=== PATIENT | male | born 1965 | race Caucasian/White ===

== ENCOUNTER 2017-01-17 22:41 | Inpatient (IN) | payer MEDICARE, OTHER ==
[~2017-01-17] VITALS: Ht 165.1 cm; Wt 78.7 kg
[2017-01-17 22:49] VITALS: BP 141/93; PULSE 105; RESP 18; O2SAT 95
--- NOTE | 2017-01-18 00:01 | PD ---
HPI Chief Complaint: Psychiatric Symptoms Time Seen by Provider: 23:38 Travel History International Travel<30 days: No Contact w/Intl Traveler<30days: No Traveled to known affect area: No History of Present Illness HPI 51-year-old white male presents emergency room as a transfer from [facility] for psychological evaluation under Lew act by the ER physician. The patient initially gone into the ER stating that he was not feeling well after eating a steak and shake. During his intake he had mentioned that he has a history of bipolar disorder and that he has multiple firearms. He stated that he wanted to shoot his sister. A Lew act was written and the patient was medically cleared and transferred to our facility. The patient states that he enjoys shooting. It helps with his mental illness. The patient will not answer whether he has plans on shooting his sister or any other family members. He does state that he is on about suicide on multiple occasions but has no plan on hurting himself. Patient denies any toxic ingestions. PFSH Past Medical History Narrative Medical Bipolar, hypertension, history of hypercholesterolemia in the past. Tetanus Vaccination: Unknown Past Surgical History Surgical History: No Previous Surgery Social History Alcohol Use: No Tobacco Use: No Substance Use: No Review of Systems General / Constitutional: No: Fever Eyes: No: Visual changes HENT: No: Headaches Cardiovascular: No: Chest Pain or Discomfort Respiratory: No: Shortness of Breath Gastrointestinal: Positive: Nausea, Other (general malaise), No: Abdominal Pain Genitourinary: No: Dysuria Musculoskeletal: No: Pain Skin: No Rash Neurologic: No: Weakness Psychiatric: Positive: Suicidal Ideations, Mood Disorder, Homicidal Ideation, No: Anxiety, Depression, Disorder of Thought, Substance Abuse Endocrine: No: Polydipsia Hematologic/Lymphatic: No: Easy Bruising Physical Exam Narrative GENERAL: Well-nourished, well-developed patient. SKIN: Warm and dry. HEAD: Normocephalic and atraumatic. EYES: No scleral icterus. No injection or drainage. ENT: No nasal drainage noted. Mucous membranes pink. Airway patent. NECK: Supple, trachea midline. Moves head freely without obvious discomfort. CARDIOVASCULAR: Regular rate and rhythm without murmurs, gallops, or rubs. RESPIRATORY: Breath sounds equal bilaterally. No accessory muscle use. GASTROINTESTINAL: Abdomen soft, non-tender, nondistended. EXTREMITIES: No cyanosis or edema. BACK: Nontender without obvious deformity. No CVA tenderness. NEURO: Patient is alert and oriented. no sensorimotor deficits. Nonfocal. Normal speech. PSYCH: No delusions. No auditory or visual hallucinations. Data Data Last Documented VS Vital Signs Date Time Temp Pulse Resp B/P (MAP) Pulse Ox O2 Delivery O2 Flow Rate FiO2 01/17/17 22:49 105 18 141/93 (109) 95 Room Air MDM Medical Decision Making Medical Screen Exam Complete: Yes Emergency Medical Condition: Yes Medical Record Reviewed: Yes Interpretation(s) Patient laboratory tests reviewed. Differential Diagnosis MDM: High Differential diagnoses: Schizophrenia, schizoaffective disorder, bipolar, anxiety, depression, adjustment reaction, mood disorder NOS, ODD, depressive disorder NOS, dementia, dementia with agitation, psychosis NOS, substance induced mood disorder, DMDD, Asperger syndrome, infection,electrolyte abnormality, malingering. Narrative Course Mental health screening discussed with the patient. Psychiatric screen ordered. The patient's been medically cleared. This is medical clearance for psychiatric admission Diagnosis Primary Impression: Medical clearance for psychiatric admission Condition: Gil Harrison Jan 18, 2017 00:01
[2017-01-18] MEDS ORDERED: LEVO.075 PO (02:26)
[2017-01-18 02:41] VITALS: BP 116/68; PULSE 62; RESP 16; TEMP 98.3; O2SAT 97
[2017-01-18 06:00] VITALS: BP 123/78; PULSE 68; RESP 17; TEMP 98.6; O2SAT 100
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
[2017-01-18] MEDS ORDERED: LORazepam 1 MG TAB PO PRN (12:45)
[2017-01-18] MEDS ORDERED: ALUMINUM/MAGNESIUM/SIMETH 30 ML CUP PO PRN (12:45)
[2017-01-18] MEDS ORDERED: LORazepam 2 MG/ML VIAL IM PRN (12:45)
[2017-01-18] MEDS ORDERED: diphenhydrAMINE HCL 50 MG/ML VIAL IM PRN (12:45)
[2017-01-18] MEDS: LEVOTHYROXINE SODIUM 75 MCG TAB PO SCH (13:00)
[2017-01-18 15:25] VITALS: BP 122/69; PULSE 77; RESP 18; TEMP 97.9; O2SAT 99
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
--- NOTE | 2017-01-18 21:52 | RADRPT ---
EXAM DATE/TIME: 01/18/2017 21:31 [facility] COMPARISON: No previous studies available for comparison. INDICATIONS : Psychosis. RADIATION DOSE: 49.98 CTDIvol (mGy) MEDICAL HISTORY : Thyroid disease. Bipolar. SURGICAL HISTORY : None. ENCOUNTER: Initial ACUITY: 1 day PAIN SCALE: 0/10 LOCATION: cranial TECHNIQUE: Multiple contiguous axial images were obtained of the head. Using automated exposure control and adj ustment of the mA and/or kV according to patient size, radiation dose was kept as low as reasonably a chievable to obtain optimal diagnostic quality images. DICOM format image data is available electro nically for review and comparison. FINDINGS: CEREBRUM: The ventricles are normal for age. No evidence of midline shift, mass lesion, hemorrhage or acute in farction. No extra-axial fluid collections are seen. POSTERIOR FOSSA: The cerebellum and brainstem are intact. The 4th ventricle is midline. The cerebellopontine angle i s unremarkable. EXTRACRANIAL: The visualized portion of the orbits is intact. SKULL: The calvaria is intact. No evidence of skull fracture. CONCLUSION: Normal examination for a patient of this age. Gil Teran MD on January 18, 2017 at 21:49 Board Certified Radiologist. This report was verified electronically.
[2017-01-19 05:58] VITALS: BP 140/86; PULSE 74; RESP 17; TEMP 97.4; O2SAT 97
[2017-01-19] MEDS: LEVOTHYROXINE SODIUM 75 MCG TAB PO SCH (06:00)
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
--- NOTE | 2017-01-19 15:26 | HHI.PR ---
Subjective Remarks Patient is upset and crying because his father has another Denies cp/sob Objective Vitals Vital Signs Date Time Temp Pulse Resp B/P (MAP) Pulse Ox O2 Delivery O2 Flow Rate FiO2 01/19/17 05:58 97.4 74 17 140/86 (104) 97 Objective Remarks AAOx3, very upset and crying Clear lungs bl Abdomen soft, nt, nd A/P Problem List: (1) Bipolar disorder, current episode mixed, severe, with psychotic features ICD Code: F31.64 - Bipolar disorder, current episode mixed, severe, with psychotic features Plan: Management as per psychiatry. C Psych ordered B12, vitamin D, TSH, CBC and CMP as well as EKG. I will order a heat CT and RPR screen to complete evaluation for psychosis and to rule out organic causes. 01/[address] negative, RPR pending. Other labs pending as well. EKG reviewed by me shows sinus rythm without st changes. (2) Hypothyroidism ICD Code: E03.9 - Hypothyroidism, unspecified Plan: Continue levothyroxine at home dose. Check TSH. (3) HTN (hypertension) ICD Code: I10 - Essential (primary) hypertension Plan: Blood pressure seems stable. The patient states he was currently on amlodipine 10 minutes by mouth daily. I will hold amlodipine for now and if blood pressures start to rise then I will start amlodipine. 01/19 BP continues to be stable. Continue to monitor bp and continue to hold antihypertensive medications. (4) BPH (benign prostatic hyperplasia) ICD Code: N40.0 - Benign prostatic hyperplasia without lower urinary tract symptoms Plan: Continue Flomax, seems stable. Problem Qualifiers (1) BPH (benign prostatic hyperplasia): Qualified Codes: N40.0 - Benign prostatic hyperplasia without lower urinary tract symptoms Pravin Monroe MD Jan 19, 2017 15:25
[2017-01-19 17:24] VITALS: BP 144/91; PULSE 67; RESP 18; TEMP 97.8; O2SAT 99
[2017-01-19] MEDS: ACETAMINOPHEN 325 MG TAB PO PRN (21:09)
[2017-01-19] MEDS: MAGNESIUM HYDROXIDE SUSP 30 ML CUP PO PRN (21:14)
[2017-01-19] MEDS ORDERED: MIRTAZAPINE 15 MG TAB PO PRN (22:30)
[2017-01-19] MEDS ORDERED: PILL SPLITTER OTHER PRN (22:45)
[2017-01-20] MEDS: ACETAMINOPHEN 325 MG TAB PO PRN ×2 (01:13→05:43)
[2017-01-20 05:59] VITALS: BP 125/89; PULSE 65; RESP 16; TEMP 98.7; O2SAT 98
[2017-01-20] MEDS: LEVOTHYROXINE SODIUM 75 MCG TAB PO SCH (06:51)
[2017-01-20] MEDS ORDERED: DIVALPROEX SODIUM DELAYED RELEASE 250 MG TAB PO SCH (09:00)
--- NOTE | 2017-01-20 12:18 | HHI.PYPN ---
Subjective Remarks Pt seen and discussed with staff. Pt remains labile with irritability. He refused medications today due to paranoia about depakote, but agreed to take ER formulation. He is focused on discharge and expresses paranoid ideations. Mental Status Examination Appearance: Disheveled Consciousness: Alert Orientation: Person, Place, Date/Time Motor Activity: Normal gait Speech: Rapid Language: Adequate Fund of Knowledge: Adequate Attention and Concentration: Inadequate Memory: Unremarkable Mood: Angry Affect: Irritable Thought Process & Associations: Loose associations Thought Content: Bizarre thinking, Ideas of reference Hallucination Type: None Delusion Type: Bizarre, Paranoid Suicidal Ideation: No Suicidal Plan: No Suicidal Intention: No Homicidal Ideation: Yes Homicidal Plan: Yes Homicidal Intention: No Insight: Adequate Judgment: Adequate Results Vitals/IOs Vital Signs Date Time Temp Pulse Resp B/P (MAP) Pulse Ox O2 Delivery O2 Flow Rate FiO2 01/20/17 05:59 98.7 65 16 125/89 (101) 98 01/18/17 06:00 Room Air Assessment & Plan Problem List: (1) Bipolar disorder, current episode mixed, severe, with psychotic features ICD Codes: F31.64 - Bipolar disorder, current episode mixed, severe, with psychotic features Assessment & Plan Changed depakote to ER formulation. Restarted home dose of amlodipine after confirmation of dose from outpatient pharmacy. Estimated LOS: days Justification for Cont. Inpt. impairments in safety Ashley Millan MD Jan 20, 2017 12:18
[2017-01-20 12:51] LABS: AUTOMATED NEUTROPHIL # 2.3 TH/MM3 (1.8-7.7); BASOPHIL % 0.6 % (0.0-2.0); EOSINOPHIL # 0.1 TH/MM3 (0-0.4); EOSINOPHIL % 2.2 % (0.0-4.0); HEMATOCRIT 41.3 % (39.0-51.0); HEMO FLAGS DIFF FINAL; LYMPH % 43.4 % (9.0-44.0); LYMPHOCYTE # 2.5 TH/MM3 (1.0-4.8); MEAN CELL VOLUME 87.5 FL (80.0-100.0); MEAN CORPUSCULAR HGB CONC 33.1 % (32.0-36.0); MONO % 14.2 % (0.0-8.0); NEUT % 39.6 % (16.0-70.0); PLATELET COUNT 317 TH/MM3 (150-450); RED BLOOD COUNT 4.72 MIL/MM3 (4.50-5.90); RED CELL DISTRIBUTION WIDTH 15.6 % (11.6-17.2); WHITE BLOOD COUNT 5.7 TH/MM3 (4.0-11.0)
[2017-01-20 13:22] LABS: ANION GAP 5 MEQ/L (5-15); AST (GOT) 26 U/L (15-37); BICARBONATE 31.8 MEQ/L (21.0-32.0); BLOOD UREA NITROGEN 21 MG/DL (7-18); CHLORIDE 100 MEQ/L (98-107); GLOMERULAR FILTRATION RATE 65 ML/MIN (>89); POTASSIUM 4.5 MEQ/L (3.5-5.1); SODIUM (NA) 137 MEQ/L (136-145)
[2017-01-20 13:24] LABS: ALT (GPT) 23 U/L (12-78)
[2017-01-20 13:49] LABS: ALKALINE PHOSPHATASE 69 U/L (45-117); HDL CHOLESTEROL 47.2 MG/DL (40.0-60.0); LDL CHOLESTEROL 100 MG/DL (0-99); TOTAL BILIRUBIN ADULT 0.2 MG/DL (0.2-1.0)
[2017-01-20] MEDS: IBUPROFEN 600 MG TAB PO PRN (17:00)
[2017-01-20 17:02] VITALS: BP 132/74; PULSE 58; RESP 16; TEMP 98.4; O2SAT 99
--- NOTE | 2017-01-20 18:42 | HHI.PR ---
Subjective Remarks Patient is calm. Denies cp/sob. Denies abdominal pain, nausea or vomiting. Objective Vitals Vital Signs Date Time Temp Pulse Resp B/P (MAP) Pulse Ox O2 Delivery O2 Flow Rate FiO2 01/20/17 18:10 14 01/20/17 17:02 98.4 58 16 132/74 (93) 99 01/20/17 05:59 98.7 65 16 125/89 (101) 98 Result Diagram: 01/20/17 1237 01/20/17 1237 Imaging Last Impressions Head CT 01/18/17 0000 Signed Impressions: Service Date/Time: Wednesday, January 18, 2017 21:31 - CONCLUSION: Normal examination for a patient of this age. Gil Teran MD Objective Remarks AAOx3, calm sitting in chair Clear lungs bl Abdomen soft, nt, nd A/P Problem List: (1) Bipolar disorder, current episode mixed, severe, with psychotic features ICD Code: F31.64 - Bipolar disorder, current episode mixed, severe, with psychotic features Plan: Management as per psychiatry. C Psych ordered B12, vitamin D, TSH, CBC and CMP as well as EKG. I will order a heat CT and RPR screen to complete evaluation for psychosis and to rule out organic causes. 01/[address] negative, RPR negative, b12 and tsh normal. EKG reviewed by me shows sinus rythm without st changes. Currently on Remeron and Ativan. (2) Hypothyroidism ICD Code: E03.9 - Hypothyroidism, unspecified Plan: Continue levothyroxine at home dose. Tsh checked and normal. (3) HTN (hypertension) ICD Code: I10 - Essential (primary) hypertension Plan: Blood pressure seems stable. The patient states he was currently on amlodipine 10 mg by mouth daily. I will hold amlodipine for now and if blood pressures start to rise then I will start amlodipine. 01/19 BP continues to be stable. Continue to monitor bp, will resume amlodipine in am. (4) BPH (benign prostatic hyperplasia) ICD Code: N40.0 - Benign prostatic hyperplasia without lower urinary tract symptoms Plan: Continue Flomax, seems stable. Problem Qualifiers (1) BPH (benign prostatic hyperplasia): Qualified Codes: N40.0 - Benign prostatic hyperplasia without lower urinary tract symptoms Pravin Monroe MD Jan 20, 2017 18:42
[2017-01-20] MEDS ORDERED: DIVALPROEX SODIUM E.R. 500 MG TAB PO SCH (21:00)
--- NOTE | 2017-01-20 22:57 | EKG ---
Date Performed: 01/19/2017 Time Performed: 09:33:04 PTAGE: 51 years EKG: Sinus rhythm VOLTAGE CRITERIA FOR LVH ABNORMAL ECG NO PREVIOUS TRACING DOCTOR: Bj Vigil Interpretating Date/Time 01/20/2017 22:55:10
[2017-01-21] MEDS: LEVOTHYROXINE SODIUM 75 MCG TAB PO SCH (06:32)
[2017-01-21 06:33] VITALS: BP 122/78; PULSE 60; RESP 17; TEMP 97.6; O2SAT 98
[2017-01-21] MEDS: IBUPROFEN 600 MG TAB PO PRN (08:38)
[2017-01-21 09:32] LABS: HEMOGLOBIN A1a 1.2 %; HEMOGLOBIN A1b 0.8 %; HEMOGLOBIN Ao 84.2 %; HEMOGLOBIN LA1C 2.3 %; HEMOGLOBIN P3 4.2 %
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
[2017-01-21] MEDS: DIVALPROEX SODIUM E.R. 500 MG TAB PO SCH ×2 (15:00→20:51)
[2017-01-21] MEDS: MIRTAZAPINE 15 MG TAB PO SCH ×2 (15:00→20:51)
[2017-01-21 17:35] VITALS: BP 123/76; PULSE 66; RESP 17; TEMP 98.5; O2SAT 99
[2017-01-22 05:35] VITALS: BP 141/94; PULSE 62; RESP 17; TEMP 97.9; O2SAT 98
[2017-01-22] MEDS: LEVOTHYROXINE SODIUM 75 MCG TAB PO SCH (05:44)
[2017-01-22] MEDS: DIVALPROEX SODIUM E.R. 500 MG TAB PO SCH ×3 (08:46→21:00)
--- NOTE | 2017-01-22 11:25 | HHI.PYPN ---
Subjective Remarks Patient seen and examined with counselor and nurse. Chart reviewed. Case discussed in treatment team. Per nursing staff, patient has been no behavioral problem on the unit. He did tell staff he was thinking about going to a [employer] in [place]. On my examination today, patient is calm and cooperative. He denies any suicidal or homicidal ideation and in particular denies any desire to hurt his sister. He feels like the Depakote is "normalizing" his mood. He says that he does not want to go to a [employer] school, rather he was just talking about a shooting range in [place] that he likes with targets at a distance to allow for use of sniper rifles. Denies side effects from medications. No physical complaints. Review of Systems Except as stated in HPI: all other systems reviewed are Neg Mental Status Examination Appearance: Appropriate Consciousness: Alert Orientation: x4 Motor Activity: Normal gait, Other (no abnormal motor movements noted) Speech: Unremarkable Language: Adequate Fund of Knowledge: Adequate Attention and Concentration: Adequate Memory: Unremarkable Mood: Appropriate Affect: Appropriate Thought Process & Associations: Logical, Linear Thought Content: Appropriate Hallucination Type: None Delusion Type: None Suicidal Ideation: No Suicidal Plan: No Suicidal Intention: No Homicidal Ideation: No Homicidal Plan: No Homicidal Intention: No Insight: Fair Judgment: Impulsive Results Labs Labs reviewed. No new labs. Vitals/IOs Vital Signs Date Time Temp Pulse Resp B/P (MAP) Pulse Ox O2 Delivery O2 Flow Rate FiO2 01/22/17 05:35 97.9 62 17 141/94 (110) 98 Assessment & Plan Problem List: (1) Bipolar disorder, current episode mixed, severe, with psychotic features ICD Codes: F31.64 - Bipolar disorder, current episode mixed, severe, with psychotic features Assessment & Plan Patient's condition seems to be improving with medication adjustments. Continue Depakote and Remeron as ordered. Plan to check a Depakote and ammonia level as well as an updated BMP for GFR on morning. Transition patient to lower acuity inpatient unit as he has been no behavioral problem on the higher acuity unit. Continue other medications and care as ordered. Justification for Cont. Inpt. Monitoring for impairments in safety, none noted. Discharge Planning Case discussed with counselor who will reach out to patient's father today for collateral. Counselor also to instruct father to secure patient's firearms. Request HC Surrog/Guard Advoc?: No Kayden Segundo MD Jan 22, 2017 11:25
[2017-01-22] MEDS: IBUPROFEN 600 MG TAB PO PRN ×2 (12:33→21:13)
[2017-01-22] MEDS: ACETAMINOPHEN 325 MG TAB PO PRN (17:36)
[2017-01-22 17:43] VITALS: BP 120/70; PULSE 55; RESP 18; TEMP 98.4; O2SAT 100
[2017-01-22] MEDS: MIRTAZAPINE 15 MG TAB PO SCH (21:00)
[2017-01-23 05:50] VITALS: BP 139/82; PULSE 69; RESP 17; TEMP 97.3; O2SAT 98
[2017-01-23] MEDS: LEVOTHYROXINE SODIUM 75 MCG TAB PO SCH (06:00)
[2017-01-23] MEDS: DIVALPROEX SODIUM E.R. 500 MG TAB PO SCH ×3 (08:27→21:00)
[2017-01-23] MEDS: ACETAMINOPHEN 325 MG TAB PO PRN (08:27)
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
[2017-01-23] MEDS: SUCRALFATE 1 GM TAB PO SCH ×3 (12:00→21:00)
[2017-01-23] MEDS: GABAPENTIN 300 MG CAP PO SCH ×2 (13:53→18:09)
[2017-01-23] MEDS: IBUPROFEN 800 MG TAB PO PRN (15:42)
[2017-01-23] MEDS: PADIMATE (CHAPSTICK) 4.5 GM TUBE TOPICAL PRN ×2 (15:43→18:09)
[2017-01-23 18:00] VITALS: BP 153/87; PULSE 69; RESP 18; TEMP 98.2; O2SAT 98
[2017-01-23] MEDS: MIRTAZAPINE 15 MG TAB PO SCH (21:00)
[2017-01-24] MEDS: IBUPROFEN 800 MG TAB PO PRN ×3 (05:00→20:36)
[2017-01-24] MEDS: LEVOTHYROXINE SODIUM 75 MCG TAB PO SCH (05:45)
[2017-01-24 05:53] VITALS: BP 164/79; PULSE 59; RESP 18; TEMP 97.7; O2SAT 100
[2017-01-24] MEDS: SUCRALFATE 1 GM TAB PO SCH ×4 (07:04→20:27)
[2017-01-24] MEDS: DIVALPROEX SODIUM E.R. 500 MG TAB PO SCH ×3 (09:13→20:30)
[2017-01-24] MEDS: GABAPENTIN 300 MG CAP PO SCH ×3 (09:13→17:05)
[2017-01-24 14:24] LABS: BICARBONATE 32.3 MEQ/L (21.0-32.0); POTASSIUM 4.8 MEQ/L (3.5-5.1)
--- NOTE | 2017-01-24 15:48 | PD.HHIRCNE ---
Disclaimer Patient was given an explanation of the nature and purpose of the evaluation. Patient agreed to proceed with the evaluation and treatment plan. History Reason for Referral The patient is a 51 year old right handed male with a long history of bipolar disorder, who presents under a Lew act initiated at an outside hospital several evenings ago. Apparently the patient went to [facility] and was Lew acted by one of our former emergency room physician's, Dr. Alexander. According to the Lew act, the patient is both psychotic and homicidal. The patient indicated he was "going to shoot his sister" with a shotgun that he has under his bed. According to further reports, the patient owns multiple weapons. He had gone to steak and shake due to abdominal pain earlier that evening but when he went to the hospital, he indicated that he enjoys shooting. He stated that shooting helped his mental illness. He would not describe whether he had plans on shooting his sister or other family members. He did describe suicidality on multiple previous occasions but was not threatening suicide last night. Upon initial psychiatric interview, the patient was easily irritated and easily agitated. He obviously has strong negative feelings towards his sister. He feels that she is interfering in his life although he does not live with her and wants nothing to do with her. He appears to have paranoid delusions regarding his sister. He is unable to explain the specifics of why he feels so antagonized and persecuted by her. He continues to have homicidal ideation about shooting her. Apparently he does live with his father but states he has been noncompliant with medications. He is unable to verbally contract for safety. At this point in his hospitalization , he is referred for baseline neuropsychological evaluation to assess hig cognitive, behavioral and emotional aspects of his functioning and to provide treatment recommendations. Additional Psychosocial Hx Hx Substance Use: No Level of Education: High School Employment Status: Disabled Prior Living Setting: Home Dominant Hand: Right Past Surgical/Medical History Past Surgery: No Major surgery in last 100 days: Unknown Hx Seizures: No Hx Chest Pain: No Hx Chronic Obstructive Pulmona: No Hx Thyroid Disease: Yes Hx Diabetes: No Hx Psychiatric Problems: Yes Hx Depression: No Blood Transfusion History Will receive Blood /Blood prod: Yes Mental Status Assessment Orientation: oriented to Self, oriented to Place, oriented to Time, oriented to Situation Mental Status: Impaired: Thought processing, Problem-Solving Adjustment/Coping Assessment Adjustment/Coping: None: Depression, Anxiety, Pain, Apathy, Severe: Awareness, Insight Affect: Flat/Constricted Observation In terms of emotional functioning, the patient demonstrated challenges. This patient demonstrated no signs of agitation, impulsivity or disinhibition during this evaluation, and in fact he was quite pleasant. However, there was a remarkable evidence of a formal thought disorder and delusional psychosis. There was no evidence of depression or anxiety. The Geriatric Depression Scale- Short Form was administered given the ease to which it is administered to persons with known neurological pathology, and the patient endorsed only 2 of 15 symptoms, which falls within the non depressed depressed range. Thought content was free from suicidal or homicidal ideation, although he did voice difficulties with his sister. His thought processes were loose, tangential and concrete. The patients mood was guarded, and his affect was constricted. The patient appears to possess no insight or awareness into their situation and within the limits of this brief evaluation, poor judgment. LTG Status: Deferred STG Status: Deferred Team Members: Neuropsychologist Effort Assessment Effort: Average Cognition Assessment Rating: Variable: Language, Immediate & Delayed Memor, Visual Perception, Spatial Judgement, Impaired: Attention/Processing, Executive, Awareness-Insight Adjustm Observation The patient was alert and oriented to person, place, time and circumstances surrounding the recent hospitalization. The Mini-Mental State Exam was administered, and the patient obtained a score of 27 out of 30 points, which falls in the normal range. However, on further evaluation, specific deficits were identified. In terms of attention skills, the patient exhibited challenges due primarily to his disturbed thought processes. The patient was able to remain on task and remember basic but not complex verbal instructions. In terms of memory functioning, the patient exhibited relatively normal abilities. The patients initial registration of verbal information was normal, and the patient was able to improve their memory with repetition. After a period of delay, the patient was able to recall this information from memory. More specifically, on the Luria Memory Words Test-Short Form, the patients trial one performance was 5 of 7 words, trial five performance was 7 of 7 words , the patients Total Learning score was 31 (above cut-off), and the patients Delayed recall score was 6 of 7 words (above cut-off). In terms of speech and language skills, the patient demonstrated normal abilities. The patients initiated spontaneous conversation throughout the assessment. Speech was characterized by adequate prosody, grammar, articulation , volume and rate. No remarkable dysnomic or paraphasic errors were noted either during conversational speech or on confrontation naming tasks. Reading recognition skills were adequate, as were writing skills. On the WRAT-4 Reading test, he earned a standard score of 100 (percentile rank of 50), and this score also serves as a good estimate of his baseline level of intellectual functioning. The patients comprehension for basic one- and two-stage commands were attenuated by his thought processing deficits. In terms of problem- solving skills, the patient exhibited challenges. The patients ability to understand abstraction reasoning was clearly abnormal as reflected in his inability to abstract essential shared characteristics of objects and concept. In contrast his mathematical reasoning skills were normal. Speed of information processing, as evaluated by both the Letter and Category Fluency Tests fluctuated across tasks, but in general exhibited a notable deficit. Finally, there was no evidence of ideomotor apraxia or constructional difficulties during this brief evaluation. Summary/Diagnosis Summary This 51 year old man with recent hospital admission for bipolar disorder and homicidal ideation and medication noncompliance exhibits neuropsychological deficits consistent with executive dysfunction and diminished processing speed, the level and pattern of which are inconsistent with the normal aging process. His thought processes are clearly dysfunctional, characterized as loose, tangential and concrete, and he exhibits impairment of insight, awareness and judgment. Diagnostically, he meets criteria for mild neurocognitive disorder exacerbated by his bipolar disorder. Diagnosis: (1) Bipolar disorder, current episode mixed, severe, with psychotic features (2) Mild neurocognitive disorder Recommendations Recommendations Recommendations Neuropsychological evaluation results document a mild neurocognitive disorder affecting his ability to think logically and act appropriately, which is then further exacerbated by his chronic bipolar disorder which he has chosen to be medication noncompliant. At this point in time, he demonstrates the impaired ability to appreciate a situation and its likely consequences, and he demonstrates the impaired ability to manipulate information rationally, and consequently, it is my clinical opinion that this patient demonstrates a lack of cognitive decision making capacity. Concerning this patient's gun ownership , Federal law prohibits firearm possession by individuals who have been committed to a mental institution or adjudicated as a mental defective for which this patient is categorized. It is understood that this patient father has rounded up all of the patient's firearms and intends to sell them, which is appropriate as he should no longer have access to firearms. Additionally, [place] is a state that requires or authorizes the reporting of some mentally ill people to the federal NICS database or a state database for use in firearm cupola man background checks. This would prevent this patient from purchasing a firearm from an FFL dealer, but not a private sale. Additional recommendations include for this patient to continue to treat with a psychiatrist for his bipolar disorder and to be compliant with his medication regimen. Feedback regarding performance on this neuropsychological evaluation was provided. Avery was able to ask questions and he was provided answers and information to his satisfaction. Furthermore, I would be happy to consult with this patient in the future in order to facilitate an optimal clinical outcome, and asked the family to contact me if they have additional questions. Additionally, please do not hesitate to refer the patient's family back to me if you believe I can be of additional assistance/guidance. There is no plan for follow-up with Avery. Session Attendance Variance 60 minutes Tony Saldivar PhD Jan 24, 2017 15:48
--- NOTE | 2017-01-24 16:28 | HHI.PYPN ---
Subjective Remarks Patient seen and case discussed with nursing staff. Chart reviewed. Per nursing staff, patient has several bags worth of keys for safes containing firearms. He gave most of these to father when asked, but refused to give father one set. He reportedly slept poorly overnight and was noted to pace the unit. For me today, patient recoils at the notion that he should not have guns. He visibly quakes in anger and points an accusing finger at me saying that I must have spoken with his sister, and that is why I say he should not have guns. I have not, in fact, spoken with sister. No side effects from medications. No physical complaints. Review of Systems ROS Limitations: Psychotic, Poor Historian Except as stated in HPI: all other systems reviewed are Neg Mental Status Examination Appearance: Appropriate Consciousness: Alert Orientation: x4 Motor Activity: Other (no abnormal motor movements noted) Speech: Unremarkable Language: Adequate Fund of Knowledge: Adequate Attention and Concentration: Adequate Memory: Unremarkable Mood: Angry Affect: Other (consistent with mood) Thought Process & Associations: Linear Thought Content: Delusional Hallucination Type: None Delusion Type: Paranoid (I suspect patient continues to harbor paranoid delusions against sister) Suicidal Ideation: No Suicidal Plan: No Suicidal Intention: No Homicidal Ideation: No Homicidal Plan: No Homicidal Intention: No Insight: Fair Judgment: Impulsive Results Labs Test 01/24/17 13:16 01/24/17 14:10 Ammonia 39 MCMOL/L Blood Urea Nitrogen 24 MG/DL Creatinine 1.05 MG/DL Random Glucose 94 MG/DL Calcium Level 9.7 MG/DL Sodium Level 141 MEQ/L Potassium Level 4.8 MEQ/L Chloride Level 104 MEQ/L Carbon Dioxide Level 32.3 MEQ/L Anion Gap 5 MEQ/L Estimat Glomerular Filtration Rate 74 ML/MIN Valproic Acid (Depakene) Level 71 MCG/ML Labs reviewed. GFR improved. Depakote level within the therapeutic range. Ammonia level mildly elevated. Vitals/IOs Vital Signs Date Time Temp Pulse Resp B/P (MAP) Pulse Ox O2 Delivery O2 Flow Rate FiO2 01/24/17 05:53 97.7 59 18 164/79 (107) 100 Assessment & Plan Problem List: (1) Bipolar disorder, current episode mixed, severe, with psychotic features ICD Codes: F31.64 - Bipolar disorder, current episode mixed, severe, with psychotic features (2) Mild neurocognitive disorder ICD Codes: G31.84 - Mild cognitive impairment, so stated Assessment & Plan Add Zyprexa Zydis 5 mg at bedtime for mood stabilization and psychosis with plans to titrate to effect. Continue Depakote and Remeron as ordered. I will add Carnitor for hyperammonemia with plans to recheck an ammonia level next week. Neuropsychology input very much appreciated, and I have discussed the case with Dr. Saldivar. Continue to monitor on the high acuity unit. Continue other medications and care as ordered. Justification for Cont. Inpt. Concern for impairment in safety. Med changes. High risk for decompensation in less restrictive environment. Discharge Planning Pending psychiatric stabilization. Possible placement. Request HC Surrog/Guard Advoc?: Yes Kayden Segundo MD Jan 24, 2017 16:28
[2017-01-24] MEDS: levOCARNitine 10% ORAL SOLN 118 ML BTL PO SCH (17:05)
[2017-01-24 18:08] VITALS: BP 136/80; PULSE 60; RESP 18; TEMP 97.9; O2SAT 99
[2017-01-24] MEDS: MIRTAZAPINE 15 MG TAB PO SCH (20:28)
[2017-01-24] MEDS: MAGNESIUM HYDROXIDE SUSP 30 ML CUP PO PRN (20:35)
[2017-01-24] MEDS ORDERED: OLANZapine ODT 5 MG TAB PO SCH (21:00)
[2017-01-25] MEDS: LEVOTHYROXINE SODIUM 75 MCG TAB PO SCH (06:02)
[2017-01-25 06:15] VITALS: BP 152/87; PULSE 59; RESP 16; TEMP 97.8; O2SAT 97
[2017-01-25] MEDS: IBUPROFEN 800 MG TAB PO PRN ×2 (07:55→18:29)
[2017-01-25] MEDS: SUCRALFATE 1 GM TAB PO SCH ×4 (07:55→21:00)
[2017-01-25] MEDS: DIVALPROEX SODIUM E.R. 500 MG TAB PO SCH ×3 (07:56→21:00)
[2017-01-25] MEDS: GABAPENTIN 300 MG CAP PO SCH ×3 (07:56→18:00)
[2017-01-25] MEDS: levOCARNitine 10% ORAL SOLN 118 ML BTL PO SCH ×3 (07:59→18:00)
--- NOTE | 2017-01-25 10:58 | HHI.PYPN ---
Subjective Remarks Patient seen and examined with nurse. Chart reviewed. Case discussed in treatment team. Nurse reports that the patient "went ballistic" about addition of an antipsychotic. On my exam, patient is in behavioral control but tense/ irritable. He complains of poor sleep secondary to chronic neck pain. Paranoia persists, although it seems less focused on any one person today. He does note that "this state has been a problem for me. I want to go to a totally different state." His reasons for not wanting to take Zyprexa are variable. At one point, he says that his refusal of this medication was because he had overdosed on it once before; at another point he says he did not like this medication because it made him too sedated to ride his motorcycle. I have suggested a less sedating antipsychotic, such as Abilify. Denies side effects from medications which he did accept. No other physical complaints besides the chronic neck pain, and the patient reports that he usually uses Icy Hot for this to good effect. Review of Systems ROS Limitations: Psychotic Except as stated in HPI: all other systems reviewed are Neg Mental Status Examination Appearance: Appropriate Consciousness: Alert Orientation: x4 Motor Activity: Other (no abnormal motor movements noted) Speech: Unremarkable Language: Adequate Fund of Knowledge: Adequate Attention and Concentration: Adequate Memory: Unremarkable Mood: Irritable Affect: Other (consistent with mood) Thought Process & Associations: Linear Thought Content: Delusional Hallucination Type: None Delusion Type: Paranoid (less focused today) Suicidal Ideation: No Suicidal Plan: No Suicidal Intention: No Homicidal Ideation: No Homicidal Plan: No Homicidal Intention: No Insight: Fair Judgment: Impulsive Results Labs Labs reviewed. No new labs. Vitals/IOs Vital Signs Date Time Temp Pulse Resp B/P (MAP) Pulse Ox O2 Delivery O2 Flow Rate FiO2 01/25/17 06:15 97.8 59 16 152/87 (336) 97 Assessment & Plan Problem List: (1) Bipolar disorder, current episode mixed, severe, with psychotic features ICD Codes: F31.64 - Bipolar disorder, current episode mixed, severe, with psychotic features (2) Mild neurocognitive disorder ICD Codes: G31.84 - Mild cognitive impairment, so stated Assessment & Plan Add Abilify to target psychosis with plans to titrate to effect. Continue Depakote with Carnitor for hyperammonemia. Check a follow-up ammonia level after the weekend. I have ordered menthol/methyl salicylate cream for patient' s chronic neck pain. Neuropsychology input noted and appreciated. Continue to monitor on the inpatient unit. Continue other medications and care as ordered. Justification for Cont. Inpt. Med changes. Risk for decompensation in less restrictive environment. Discharge Planning Possible placement. Request HC Surrog/Guard Advoc?: Yes Kayden Segundo MD Jan 25, 2017 10:58
--- NOTE | 2017-01-25 11:55 | PD.TTN ---
Patient Problems 1. Discharge planning 2. Medication compliance 3. Knowledge deficit 4. Lack of coping skills Progress Toward Goals Provider Present: Dr. Nasir Segundo Provider Input: Pt medication regiment will continue to be evaluated including possible consideration for addition of long acting injection. It is believed that he would benefit from placement in a facility after discharge. Psychiatric Counselors Present: JAYNE Villatoro Psych Therapist Input: Pt remains paranoid, easily agitated, guarded, uncooperative, appropriate and organized. Pt presents with limited insight into condition and need for care. He is resistant to medication changes. Pt is also resistant to suggestions for discharge planning. Pt presents with limited coping and emotional regulation skills. Group Spec/RT/OT/GOYAL Present: JAY JAY Mueller Group Spec/RT/OT/GOYAL Input: Pt has not been participating in group activities. Discharge Plan SMA Pt would benefit from placement in an [facility] but is resistant to this at this point. He would not want to live with his parents as he remains paranoid so discharge planning will be evaluated. Documentation Scribe: JAYNE Villatoro Jonathan LMHC Jan 25, 2017 11:55
--- NOTE | 2017-01-25 13:41 | HHI.PR ---
Neuropsych Emotional Emotional: Intact: Emotional, Anxious/Fearful, Depressed/Sad, Hostile/Resentful , Irritable/Angry/Frustrate, Labile, Constricted/Blunted Cognitive Cognitive: Intact: Confused/Orientation, Mild: Attention/Concentration, Memory , Severe: Insight/Awareness, Judgement/Problem-Solving Psychosocial Psychosocial: Severe: Psychosocial, Family/Other Adjustment, Realistic Expectation, Unable to Asses: Self-Esteem/Confidence Progress Notes/Response to Tx Contents of Sessions: Adjustment Time with Patient: 30 minutes Premorbid psychological status Premorbid Cognitive, Emotional and Behavioral Status: Unstable. The patient has 11 years of education and is on social security disability. The patient has chronic psychiatric difficulties, as described in his chart. Substance abuse history is not significant. Behavioral Reactions of Patient and Family/Support System: Tenuous. The patients family is experiencing ongoing issues of adjustment given the nature of his chronic mental illness, and this aspect of treatment will require ongoing monitoring. Emotional/Behavioral Status of Patient and Family/Support System: Tenuous. Pertinent issues, if appropriate to this patients clinical care, are described in detail above. Maximizing acute care outcome It is recommended that the patient be monitored for ongoing psychiatric difficulties as the medical condition evolves. In addition, this patients neuropathological challenges may limit his rehabilitation potential going forward, as identified on earlier neuropsychological exam, and these challenges will require specialized therapeutic skills to maximize outcome. At this point in the recovery process, the patient does not have cognitive capacity as the patient is unable to understand a situation and its likely consequences, nor is he able to manipulate information rationally. Cognitive capacity will be assessed throughout the recovery process. Anticipated Problems Ongoing areas of concern will include behavioral impulsivity, lack of insight and judgment, which may not improve with time or treatment. Treatment Plan This clinician will continue to follow with you throughout the course of this patients psychiatric treatment, and I will be available to meet with the patients family/support system to facilitate their understanding and the ongoing care of their family member. The goals of neuropsychological intervention shall be both educational and supportive to the family/support system as is deemed clinically appropriate. Diagnosis: (1) Bipolar disorder, current episode mixed, severe, with psychotic features (2) Mild neurocognitive disorder Progress Note Narrative Ongoing follow-up of patient seen on the unit. I returned today to provide the patient feedback on the evaluation yesterday, and to provide him my opinions concerning firearm ownership going forward. I told him that he exhibited neurocognitive deficits more likely related to his reported brain atrophy. I specifically told this patient that given his neuropsychological findings in combination with his chronic mental illness that he is no longer allowed ownership of firearms, and that he will be placed on an ATF list that [facility] use to determine whether a firearm can be sold to an individual (e.g., background check). He repeated back to me his understanding of what I told him with accurate reiteration, and consented that he would abide by my recommendation. He said that he would make arrangements to sell his firearms and to seek a new hobby. If there is anything else I can do to facilitate this patient's therapeutic outcome, please do not hesitate to contact me. Tony Saldivar PhD Jan 25, 2017 1:41 pm
[2017-01-25 18:58] VITALS: BP 150/82; PULSE 75; RESP 18; TEMP 98.3; O2SAT 100
[2017-01-25] MEDS: MIRTAZAPINE 15 MG TAB PO SCH (21:00)
[2017-01-25] MEDS: MENTHOL/METHYL SALICYLATE OINT 30 GM TUBE TOPICAL PRN (21:25)
[2017-01-25] MEDS: ACETAMINOPHEN 325 MG TAB PO PRN (23:23)
[2017-01-25] MEDS: PADIMATE (CHAPSTICK) 4.5 GM TUBE TOPICAL PRN (23:25)
[2017-01-26] MEDS: IBUPROFEN 800 MG TAB PO PRN ×3 (04:07→20:32)
[2017-01-26] MEDS: PADIMATE (CHAPSTICK) 4.5 GM TUBE TOPICAL PRN (04:07)
[2017-01-26 06:04] VITALS: BP 138/66; PULSE 77; RESP 18; TEMP 97; O2SAT 97
[2017-01-26] MEDS: LEVOTHYROXINE SODIUM 75 MCG TAB PO SCH (06:22)
[2017-01-26] MEDS: ACETAMINOPHEN 325 MG TAB PO PRN ×2 (06:28→10:50)
[2017-01-26] MEDS: SUCRALFATE 1 GM TAB PO SCH ×4 (08:35→20:32)
[2017-01-26] MEDS: ARIPiprazole 5 MG TAB PO SCH ×2 (08:35→08:39)
[2017-01-26] MEDS: GABAPENTIN 300 MG CAP PO SCH ×3 (08:35→17:28)
[2017-01-26] MEDS: DIVALPROEX SODIUM E.R. 500 MG TAB PO SCH ×3 (08:42→20:56)
[2017-01-26] MEDS: levOCARNitine 10% ORAL SOLN 118 ML BTL PO SCH ×3 (09:00→17:28)
--- NOTE | 2017-01-26 12:26 | HHI.PYPN ---
Subjective Remarks Patient was seen and case discussed with nursing. Patient continues to be oppositional poor insight. He minimizes his threats towards his sister.'s perseverative on his guns being taken away. He refused his Abilify. No behavioral outbursts per nursing. Mood remains irritable. Mental Status Examination Appearance: Appropriate Consciousness: Alert Orientation: x4 Motor Activity: Other (no abnormal motor movements noted) Speech: Unremarkable Language: Adequate Fund of Knowledge: Adequate Attention and Concentration: Adequate Memory: Unremarkable Mood: Irritable Affect: Other (consistent with mood) Thought Process & Associations: Linear Thought Content: Preoccupations, Delusional Hallucination Type: None Delusion Type: Paranoid (less focused today) Suicidal Ideation: No Suicidal Plan: No Suicidal Intention: No Homicidal Ideation: No Homicidal Plan: No Homicidal Intention: No Insight: Fair Judgment: Impulsive Results Vitals/IOs Vital Signs Date Time Temp Pulse Resp B/P (MAP) Pulse Ox O2 Delivery O2 Flow Rate FiO2 01/26/17 06:04 97.0 77 18 138/66 (90) 97 Intake and Output 01/26/17 01/26/17 01/27/17 08:00 16:00 00:00 Intake Total 240 ml 480 ml Balance 240 ml 480 ml Assessment & Plan Problem List: (1) Bipolar disorder, current episode mixed, severe, with psychotic features ICD Codes: F31.64 - Bipolar disorder, current episode mixed, severe, with psychotic features (2) Mild neurocognitive disorder ICD Codes: G31.84 - Mild cognitive impairment, so stated Assessment & Plan Encourage patient to take Abilify. Justification for Cont. Inpt. Patient would decompensate in a less restrictive setting Request HC Surrog/Guard Advoc?: Yes Ankit Ray DO Jan 26, 2017 12:26
[2017-01-26] MEDS: MIRTAZAPINE 15 MG TAB PO SCH (20:32)
[2017-01-26] MEDS: MENTHOL/METHYL SALICYLATE OINT 30 GM TUBE TOPICAL PRN (22:00)
[2017-01-27] MEDS: PADIMATE (CHAPSTICK) 4.5 GM TUBE TOPICAL PRN
[2017-01-27] MEDS: LEVOTHYROXINE SODIUM 75 MCG TAB PO SCH (05:51)
[2017-01-27] MEDS: SUCRALFATE 1 GM TAB PO SCH ×4 (06:25→21:27)
[2017-01-27 06:37] VITALS: BP 125/78; PULSE 48; RESP 16; TEMP 98.2; O2SAT 98
[2017-01-27] MEDS: DIVALPROEX SODIUM E.R. 500 MG TAB PO SCH ×3 (08:45→21:27)
[2017-01-27] MEDS: ARIPiprazole 5 MG TAB PO SCH (08:45)
[2017-01-27] MEDS: GABAPENTIN 300 MG CAP PO SCH ×3 (08:45→17:23)
[2017-01-27] MEDS: levOCARNitine 10% ORAL SOLN 118 ML BTL PO SCH ×3 (08:45→17:23)
[2017-01-27] MEDS: IBUPROFEN 800 MG TAB PO PRN ×2 (09:17→17:23)
[2017-01-27] MEDS ORDERED: LORazepam 2 MG/ML VIAL IM PRN (10:00)
[2017-01-27] MEDS: LORazepam 1 MG TAB PO PRN (10:03)
--- NOTE | 2017-01-27 14:46 | HHI.PYPN ---
Subjective Remarks Patient was seen and case discussed with nursing. Patient is more irritable today and does not want us to contact his family.'s perseverative on his sister. Continues to refuse Abilify. Other medication options were reviewed but patient is not interested. Largely seclusive to self. Was agitated this morning and received Ativan per nursing Mental Status Examination Appearance: Appropriate Consciousness: Alert Orientation: x4 Motor Activity: Other (no abnormal motor movements noted) Speech: Unremarkable Language: Adequate Fund of Knowledge: Adequate Attention and Concentration: Adequate Memory: Unremarkable Mood: Irritable Affect: Other (consistent with mood) Thought Process & Associations: Circumstantial Thought Content: Preoccupations, Delusional Hallucination Type: None Delusion Type: Paranoid (less focused today) Suicidal Ideation: No Suicidal Plan: No Suicidal Intention: No Homicidal Ideation: No Homicidal Plan: No Homicidal Intention: No Insight: Fair Judgment: Impulsive Results Vitals/IOs Vital Signs Date Time Temp Pulse Resp B/P (MAP) Pulse Ox O2 Delivery O2 Flow Rate FiO2 01/27/17 06:37 98.2 48 16 125/78 (94) 98 Assessment & Plan Problem List: (1) Bipolar disorder, current episode mixed, severe, with psychotic features ICD Codes: F31.64 - Bipolar disorder, current episode mixed, severe, with psychotic features (2) Mild neurocognitive disorder ICD Codes: G31.84 - Mild cognitive impairment, so stated Assessment & Plan Continue current treatment plan Justification for Cont. Inpt. Patient will decompensate in a less restrictive setting Request HC Surrog/Guard Advoc?: Yes Ankit Ray DO Jan 27, 2017 14:46
[2017-01-27] MEDS: ACETAMINOPHEN 325 MG TAB PO PRN (16:22)
[2017-01-27 18:14] VITALS: BP 125/70; PULSE 76; RESP 17; TEMP 97; O2SAT 99
[2017-01-27] MEDS: MIRTAZAPINE 15 MG TAB PO SCH (21:27)
[2017-01-28 05:33] VITALS: BP 129/77; PULSE 68; RESP 16; TEMP 98.3; O2SAT 98
[2017-01-28] MEDS: LEVOTHYROXINE SODIUM 75 MCG TAB PO SCH (05:48)
[2017-01-28] MEDS: SUCRALFATE 1 GM TAB PO SCH ×4 (06:30→21:00)
[2017-01-28] MEDS: ARIPiprazole 5 MG TAB PO SCH (08:16)
[2017-01-28] MEDS: GABAPENTIN 300 MG CAP PO SCH ×3 (08:16→17:50)
[2017-01-28] MEDS: DIVALPROEX SODIUM E.R. 500 MG TAB PO SCH ×3 (08:17→21:11)
[2017-01-28] MEDS: IBUPROFEN 800 MG TAB PO PRN ×3 (08:17→23:41)
[2017-01-28] MEDS: levOCARNitine 10% ORAL SOLN 118 ML BTL PO SCH ×3 (08:18→17:51)
[2017-01-28] MEDS: LORazepam 1 MG TAB PO PRN (08:21)
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
[2017-01-28] MEDS: MENTHOL/METHYL SALICYLATE OINT 30 GM TUBE TOPICAL PRN ×2 (11:53→22:00)
[2017-01-28] MEDS: PADIMATE (CHAPSTICK) 4.5 GM TUBE TOPICAL PRN ×2 (11:53→22:00)
[2017-01-28 18:42] VITALS: BP 135/62; PULSE 84; RESP 18; TEMP 97.8; O2SAT 99
[2017-01-28] MEDS: MIRTAZAPINE 15 MG TAB PO SCH (21:12)
[2017-01-28] MEDS: diphenhydrAMINE HCL 50 MG CAP PO PRN (21:12)
[2017-01-29] MEDS: PADIMATE (CHAPSTICK) 4.5 GM TUBE TOPICAL PRN ×3 (02:00→23:59)
[2017-01-29] MEDS: LEVOTHYROXINE SODIUM 75 MCG TAB PO SCH (05:24)
[2017-01-29 05:45] VITALS: BP 132/85; PULSE 75; RESP 18; TEMP 98.3; O2SAT 99
[2017-01-29] MEDS: ACETAMINOPHEN 325 MG TAB PO PRN ×2 (06:26→22:24)
[2017-01-29] MEDS: LORazepam 1 MG TAB PO PRN (06:34)
[2017-01-29] MEDS: levOCARNitine 10% ORAL SOLN 118 ML BTL PO SCH ×3 (07:52→17:56)
[2017-01-29] MEDS: SUCRALFATE 1 GM TAB PO SCH ×4 (07:52→20:45)
[2017-01-29] MEDS: GABAPENTIN 300 MG CAP PO SCH ×3 (07:52→17:57)
[2017-01-29] MEDS: DIVALPROEX SODIUM E.R. 500 MG TAB PO SCH ×3 (07:54→20:45)
[2017-01-29] MEDS: IBUPROFEN 800 MG TAB PO PRN ×3 (08:30→23:57)
[2017-01-29] MEDS: diphenhydrAMINE HCL 50 MG CAP PO PRN (08:30)
[2017-01-29] MEDS ORDERED: ARIPiprazole 10 MG TAB PO SCH (09:00)
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
--- NOTE | 2017-01-29 13:28 | PD.TTN ---
Patient Problems 1. Discharge planning 2. Medication compliance 3. Knowledge deficit 4. Lack of coping skills Progress Toward Goals Provider Present: Dr. Nasir Segundo Provider Input: Pt medication regiment will continue to be evaluated including possible consideration for addition of long acting injection. It is believed that he would benefit from placement in a facility after discharge. 01/29- Pt has been refusing his medication and appears angry, threatening and paranoid. He is a possible referral to [facility] and a referral for [facility] placement. Nurse(s) Present: Jayme Pires RN Nurse(s) Input: PT appears paranoid, oppositional, focused on his guns and has been refusing his medication. Psychiatric Counselors Present: JAYNE Villatoro Psych Therapist Input: Pt remains paranoid, easily agitated, guarded, uncooperative, appropriate and organized. Pt presents with limited insight into condition and need for care. He is resistant to medication changes. Pt is also resistant to suggestions for discharge planning. Pt presents with limited coping and emotional regulation skills. 01/29- Pt appears easily agitated, labile, paranoid, guarded, uncooperative and threatening. He has been observed to make threats of violance against psychiatrist. He has no insight into condition and need for care. Pt appears impulsive and with poor coping/emotional regulation skills. He has not been compliant with medication regiment and remains volatile. Group Spec/RT/OT/GOYAL Present: HARRISON Durán, JAY JAY Mueller Group Spec/RT/OT/GOYAL Input: Pt has not been participating in group activities. 01/29- HARRISON Durán Pt has not been attending group and appears isolative and antisocial. Discharge Plan SMA Pt will be referred for placement at [facility] though if his condition does not improve he will likely be referred to [facility]. Documentation Scribe: JAYNE Villatoro Jonathan LMHC Jan 29, 2017 13:28
[2017-01-29 17:18] VITALS: BP 130/79; PULSE 91; RESP 18; TEMP 98.7; O2SAT 98
[2017-01-29] MEDS: MIRTAZAPINE 15 MG TAB PO SCH (20:07)
[2017-01-29] MEDS ORDERED: ZOLPIDEM TARTRATE 5 MG TAB PO PRN (21:00)
[2017-01-29] MEDS: MENTHOL/METHYL SALICYLATE OINT 30 GM TUBE TOPICAL PRN (23:12)
[2017-01-30 05:55] VITALS: BP 140/74; PULSE 78; RESP 18; TEMP 97.8; O2SAT 99
[2017-01-30] MEDS: LEVOTHYROXINE SODIUM 75 MCG TAB PO SCH (06:16)
[2017-01-30] MEDS: ARIPiprazole 10 MG TAB PO SCH ×2 (08:50→09:00)
[2017-01-30] MEDS: SUCRALFATE 1 GM TAB PO SCH ×4 (08:50→20:11)
[2017-01-30] MEDS: levOCARNitine 10% ORAL SOLN 118 ML BTL PO SCH ×3 (08:51→16:18)
[2017-01-30] MEDS: GABAPENTIN 300 MG CAP PO SCH ×3 (08:51→16:18)
[2017-01-30] MEDS: DIVALPROEX SODIUM E.R. 500 MG TAB PO SCH ×3 (08:55→20:11)
--- NOTE | 2017-01-30 11:00 | HHI.PYPN ---
Subjective Remarks Patient seen and examined with nurse in counselor. Chart reviewed. Case discussed with counselor and nurse. Nurse reports that patient refused Abilify. He has been seclusive to room. On my examination today, patient initially refuses to speak directly with me, preferring to speak through nurse. After some rapport-building he strikes a more conciliatory pose. He apologizes for his threats against this advertising copy writer. He remains paranoid and irritable, though, and says "people are pushing my buttons, it seems they know what to do." He denies SI/HI. He does say that he will not take the Abilify but does agree to consider a different antipsychotic. We discuss the R/B/A of a trial of Prolixin. Denies side effects from medications. No physical complaints. Requesting nicotine patch, says he smokes one pack a day. He seems overall more willing today to participate in his treatment and to work toward safe discharge plan. Review of Systems ROS Limitations: Psychotic Except as stated in HPI: all other systems reviewed are Neg Mental Status Examination Appearance: Appropriate Consciousness: Alert Orientation: x4 Motor Activity: Other (no motoric abnormalities noted) Speech: Unremarkable Language: Adequate Fund of Knowledge: Adequate Attention and Concentration: Adequate Memory: Unremarkable Mood: Other (calmer) Affect: Irritable Thought Process & Associations: Linear Thought Content: Preoccupations, Delusional Hallucination Type: None Delusion Type: Paranoid Suicidal Ideation: No Homicidal Ideation: No Insight: Poor Judgment: Poor Results Labs Labs reviewed. No new labs. Vitals/IOs Vital Signs Date Time Temp Pulse Resp B/P (MAP) Pulse Ox O2 Delivery O2 Flow Rate FiO2 01/30/17 05:55 97.8 78 18 140/74 (96) 99 Assessment & Plan Problem List: (1) Bipolar disorder, current episode mixed, severe, with psychotic features ICD Codes: F31.64 - Bipolar disorder, current episode mixed, severe, with psychotic features (2) Mild neurocognitive disorder ICD Codes: G31.84 - Mild cognitive impairment, so stated Assessment & Plan Discontinue Abilify. Given that I am somewhat pessimistic that he will accept a medication in the long-term, I will start the patient on a medication that has an available oral form, short acting injectable as well as long-acting injectable. The patient has had a bad experience with Haldol in the past and so we will start the patient on Prolixin 5 mg twice daily. We will offer this initially by mouth but will consider adding IM backup if needed. Nicotine patch. I will allow telephone restrictions to . Continue other medications and care as ordered. Justification for Cont. Inpt. Med changes. Concern for impairment in safety. Impairment in reality construction. Risk for decompensation in less restrictive environment. Discharge Planning Case discussed with counselor. Request HC Surrog/Guard Advoc?: Yes Kayden Segundo MD Jan 30, 2017 11:00
[2017-01-30] MEDS: IBUPROFEN 800 MG TAB PO PRN ×2 (11:42→20:11)
[2017-01-30] MEDS: NICOTINE 21 MG/24 HR PATCH T-DERMAL SCH (12:56)
[2017-01-30] MEDS: ACETAMINOPHEN 325 MG TAB PO PRN (16:19)
[2017-01-30 17:03] VITALS: BP 138/90; PULSE 71; RESP 18; TEMP 97.8; O2SAT 96
[2017-01-30] MEDS: MIRTAZAPINE 15 MG TAB PO SCH (20:12)
[2017-01-31] MEDS: LORazepam 1 MG TAB PO PRN ×2 (00:01→08:30)
[2017-01-31] MEDS: ACETAMINOPHEN 325 MG TAB PO PRN ×2 (00:02→12:24)
[2017-01-31] MEDS: LEVOTHYROXINE SODIUM 75 MCG TAB PO SCH (06:00)
[2017-01-31 06:04] VITALS: BP 122/74; PULSE 71; RESP 16; TEMP 97.1; O2SAT 98
[2017-01-31] MEDS: SUCRALFATE 1 GM TAB PO SCH ×4 (08:00→20:47)
[2017-01-31] MEDS: NICOTINE 21 MG/24 HR PATCH T-DERMAL SCH (08:27)
[2017-01-31] MEDS: REMOVE OLD PATCH T-DERMAL SCH (08:28)
[2017-01-31] MEDS: levOCARNitine 10% ORAL SOLN 118 ML BTL PO SCH ×3 (08:29→18:01)
[2017-01-31] MEDS: PADIMATE (CHAPSTICK) 4.5 GM TUBE TOPICAL PRN ×2 (08:30→14:17)
[2017-01-31] MEDS: GABAPENTIN 300 MG CAP PO SCH ×3 (08:30→18:01)
[2017-01-31] MEDS: IBUPROFEN 800 MG TAB PO PRN ×2 (08:30→18:02)
[2017-01-31] MEDS: DIVALPROEX SODIUM E.R. 500 MG TAB PO SCH ×3 (09:00→20:47)
--- NOTE | 2017-01-31 12:16 | HHI.PYPN ---
Subjective Remarks Patient seen and case discussed with nursing staff. Chart reviewed. For me today, patient remains paranoid, particularly regarding sister. When his writ of raghu garcia was declined by [address], for example, patient says "that's what my sister wanted me to do: lose everything." No evident side effects from medications. No physical complaints voiced. Review of Systems ROS Limitations: Psychotic Except as stated in HPI: all other systems reviewed are Neg Mental Status Examination Appearance: Appropriate Consciousness: Alert Orientation: x4 Motor Activity: Other (no motor abnormalities noted) Speech: Unremarkable Language: Adequate Fund of Knowledge: Adequate Attention and Concentration: Adequate Memory: Unremarkable Mood: Other (somewhat tense) Affect: Irritable (ongoing) Thought Process & Associations: Linear Thought Content: Preoccupations, Delusional Hallucination Type: None Delusion Type: Paranoid Suicidal Ideation: No Homicidal Ideation: No Insight: Poor Judgment: Poor Results Labs Labs reviewed. No new labs. Vitals/IOs Vital Signs Date Time Temp Pulse Resp B/P (MAP) Pulse Ox O2 Delivery O2 Flow Rate FiO2 01/31/17 06:04 97.1 71 16 122/74 (90) 98 Assessment & Plan Problem List: (1) Bipolar disorder, current episode mixed, severe, with psychotic features ICD Codes: F31.64 - Bipolar disorder, current episode mixed, severe, with psychotic features (2) Mild neurocognitive disorder ICD Codes: G31.84 - Mild cognitive impairment, so stated Assessment & Plan Titrate Prolixin to 5mg TID to target psychosis. I suspect that now that his writ was declined, patient may begin to refuse antipsychotics once again; I will add IM backup. Continue to monitor on the inpatient unit. Continue other medications and care as ordered. Justification for Cont. Inpt. Impairment in reality construction. Medication changes. High risk for decompensation in less restrictive environment. Discharge Planning Pending further stabilization. Request HC Surrog/Guard Advoc?: Yes Kayden Segundo MD Jan 31, 2017 12:16
[2017-01-31] MEDS ORDERED: fluPHENAZine HCL 25 MG/10 ML VIAL IM PRN (14:45)
[2017-01-31] MEDS: MENTHOL/METHYL SALICYLATE OINT 30 GM TUBE TOPICAL PRN (18:01)
[2017-01-31 18:24] VITALS: BP 139/79; PULSE 72; RESP 16; TEMP 98.6; O2SAT 98
[2017-01-31] MEDS: MIRTAZAPINE 15 MG TAB PO SCH (20:46)
[2017-02-01] MEDS: IBUPROFEN 800 MG TAB PO PRN ×2 (04:35→11:45)
[2017-02-01 05:56] VITALS: BP 137/81; PULSE 74; RESP 18; TEMP 97.5; O2SAT 96
[2017-02-01] MEDS: LEVOTHYROXINE SODIUM 75 MCG TAB PO SCH (06:04)
[2017-02-01] MEDS: NICOTINE 21 MG/24 HR PATCH T-DERMAL SCH (09:00)
[2017-02-01] MEDS: REMOVE OLD PATCH T-DERMAL SCH (09:00)
[2017-02-01] MEDS: levOCARNitine 10% ORAL SOLN 118 ML BTL PO SCH ×3 (09:03→17:20)
[2017-02-01] MEDS: SUCRALFATE 1 GM TAB PO SCH ×4 (09:03→20:56)
[2017-02-01] MEDS: DIVALPROEX SODIUM E.R. 500 MG TAB PO SCH ×3 (09:04→20:55)
[2017-02-01] MEDS: GABAPENTIN 300 MG CAP PO SCH ×3 (09:04→17:20)
[2017-02-01] MEDS: ACETAMINOPHEN 325 MG TAB PO PRN ×3 (09:11→20:56)
--- NOTE | 2017-02-01 10:52 | HHI.PYPN ---
Subjective Chief Complaint: Psychosis/Mild neurocognitive disorder Remarks Patient seen and examined with counselor and nurse. Chart reviewed. Case discussed in treatment team. Per nursing staff, patient slept somewhat poorly overnight complaining of a nightmare. He has been compliant with medications. On my examination today, the patient is somewhat tired and does indeed report that he experienced a nightmare overnight that disrupted his sleep although he does not describe in great detail. He is overall calmer since initiating Prolixin. He does not verbalize any paranoid material today, nor does he issue any threats. He seems more willing overall to participate in discharge planning and treatment planning. He denies SI/HI/AVH. He does complain of feeling somewhat overmedicated but otherwise denies side effects from medications. No physical complaints. Review of Systems Except as stated in HPI: all other systems reviewed are Neg Mental Status Examination Appearance: Appropriate Consciousness: Alert Orientation: x4 Motor Activity: Other (no hand tremor, no cogwheeling, no other motor abnormalities noted.) Speech: Unremarkable Language: Adequate Fund of Knowledge: Adequate Attention and Concentration: Adequate Memory: Unremarkable Mood: Other (considerably calmer and less tense) Affect: Appropriate Thought Process & Associations: Linear Hallucination Type: None Delusion Type: None Suicidal Ideation: No Homicidal Ideation: No Insight: Poor Judgment: Poor Results Labs Labs reviewed. No new labs. Vitals/IOs Vital Signs Date Time Temp Pulse Resp B/P (MAP) Pulse Ox O2 Delivery O2 Flow Rate FiO2 02/01/17 05:56 97.5 74 18 137/81 (99) 96 Assessment & Plan Problem List: (1) Bipolar disorder, current episode mixed, severe, with psychotic features ICD Codes: F31.64 - Bipolar disorder, current episode mixed, severe, with psychotic features (2) Mild neurocognitive disorder ICD Codes: G31.84 - Mild cognitive impairment, so stated Assessment & Plan Continue Prolixin 5mg TID. I do anticipate that patient will habituate to this dose, and he seems to be deriving benefit from it with respect to his paranoia and associated irritability. Plan for Prolixin Dec. Continue other medications as ordered. Father had related to me that there is a storage unit of patient's that might contain additional firearms, and I have tasked the counselor with ensuring that this area is secured as well by family prior to discharge. OT eval. Continue other care as ordered. Justification for Cont. Inpt. Anticipated medication changes. High risk for decompensation in less restrictive environment. Discharge Planning Placement versus State Hospitalization. Patient does actually seem open to the idea of [facility] placement today. Request HC Surrog/Guard Advoc?: Yes Kayden Segundo MD Feb 01, 2017 10:52
[2017-02-01 18:04] VITALS: BP 113/50; PULSE 70; RESP 18; TEMP 98; O2SAT 99
[2017-02-01] MEDS: MIRTAZAPINE 15 MG TAB PO SCH (20:49)
[2017-02-02] MEDS: LEVOTHYROXINE SODIUM 75 MCG TAB PO SCH (05:19)
[2017-02-02 07:01] VITALS: BP 124/77; PULSE 77; RESP 18; TEMP 97.8; O2SAT 98
[2017-02-02] MEDS: SUCRALFATE 1 GM TAB PO SCH ×4 (07:59→20:43)
[2017-02-02] MEDS: levOCARNitine 10% ORAL SOLN 118 ML BTL PO SCH ×3 (07:59→16:44)
[2017-02-02] MEDS: DIVALPROEX SODIUM E.R. 500 MG TAB PO SCH ×3 (07:59→20:50)
[2017-02-02] MEDS: GABAPENTIN 300 MG CAP PO SCH ×3 (07:59→16:45)
[2017-02-02] MEDS: IBUPROFEN 800 MG TAB PO PRN ×2 (09:00→16:45)
[2017-02-02] MEDS: REMOVE OLD PATCH T-DERMAL SCH (09:16)
[2017-02-02] MEDS: NICOTINE 21 MG/24 HR PATCH T-DERMAL SCH (09:16)
--- NOTE | 2017-02-02 16:38 | HHI.PYPN ---
Subjective Chief Complaint: Psychosis/Mild neurocognitive disorder Remarks Patient was seen and case discussed with nursing. Patient is pleasant and cooperative with exam. Appears less perseverative on his family and the guns compared to her last meeting. Says he has resolved that his family does not exist to him anymore. He has no plans of revenge or anger towards anyone. No plans to by guns after discharge. Behaving well on the unit Mental Status Examination Appearance: Appropriate Consciousness: Alert Orientation: x4 Motor Activity: Other (no hand tremor, no cogwheeling, no other motor abnormalities noted.) Speech: Unremarkable Language: Adequate Fund of Knowledge: Adequate Attention and Concentration: Adequate Memory: Unremarkable Mood: Other (considerably calmer and less tense) Affect: Appropriate Thought Process & Associations: Linear Hallucination Type: None Delusion Type: None Suicidal Ideation: No Suicidal Plan: No Suicidal Intention: No Homicidal Ideation: No Homicidal Plan: No Homicidal Intention: No Insight: Poor Judgment: Poor Results Vitals/IOs Vital Signs Date Time Temp Pulse Resp B/P (MAP) Pulse Ox O2 Delivery O2 Flow Rate FiO2 02/02/17 10:04 18 02/02/17 07:01 97.8 77 124/77 (93) 98 Assessment & Plan Problem List: (1) Bipolar disorder, current episode mixed, severe, with psychotic features ICD Codes: F31.64 - Bipolar disorder, current episode mixed, severe, with psychotic features (2) Mild neurocognitive disorder ICD Codes: G31.84 - Mild cognitive impairment, so stated Assessment & Plan Continue current treatment plan Justification for Cont. Inpt. Patient will decompensate in a less restrictive setting Request HC Surrog/Guard Advoc?: Yes Ankit Ray DO Feb 02, 2017 16:38
[2017-02-02 17:21] VITALS: BP 134/88; PULSE 81; RESP 18; TEMP 99; O2SAT 99
[2017-02-02] MEDS: PADIMATE (CHAPSTICK) 4.5 GM TUBE TOPICAL PRN (20:42)
[2017-02-02] MEDS: MIRTAZAPINE 15 MG TAB PO SCH (20:43)
[2017-02-02] MEDS: ACETAMINOPHEN 325 MG TAB PO PRN (20:45)
[2017-02-03] MEDS: IBUPROFEN 800 MG TAB PO PRN ×3 (04:31→21:32)
[2017-02-03] MEDS: LEVOTHYROXINE SODIUM 75 MCG TAB PO SCH (05:54)
[2017-02-03 05:56] VITALS: BP 137/85; PULSE 59; RESP 18; TEMP 97.5; O2SAT 99
[2017-02-03] MEDS: PADIMATE (CHAPSTICK) 4.5 GM TUBE TOPICAL PRN ×2 (06:28→17:41)
[2017-02-03] MEDS: SUCRALFATE 1 GM TAB PO SCH ×4 (08:00→21:00)
[2017-02-03] MEDS: REMOVE OLD PATCH T-DERMAL SCH (09:00)
[2017-02-03] MEDS: GABAPENTIN 300 MG CAP PO SCH ×3 (09:28→17:06)
[2017-02-03] MEDS: NICOTINE 21 MG/24 HR PATCH T-DERMAL SCH (09:28)
[2017-02-03] MEDS: levOCARNitine 10% ORAL SOLN 118 ML BTL PO SCH ×3 (09:28→17:06)
[2017-02-03] MEDS: DIVALPROEX SODIUM E.R. 500 MG TAB PO SCH ×3 (09:30→21:27)
--- NOTE | 2017-02-03 13:10 | HHI.PYPN ---
Subjective Chief Complaint: Psychosis/Mild neurocognitive disorder Remarks Patient was seen and case discussed with nursing. Patient remains on good behavior. Patient did not mention anything about any guns or his family today. He was watching TV and reading the newspaper. He is sleeping well. Tolerating medications well Mental Status Examination Appearance: Appropriate Consciousness: Alert Orientation: x4 Motor Activity: Other (no hand tremor, no cogwheeling, no other motor abnormalities noted.) Speech: Unremarkable Language: Adequate Fund of Knowledge: Adequate Attention and Concentration: Adequate Memory: Unremarkable Mood: Other (considerably calmer and less tense) Affect: Appropriate Thought Process & Associations: Linear Hallucination Type: None Delusion Type: None Suicidal Ideation: No Suicidal Plan: No Suicidal Intention: No Homicidal Ideation: No Homicidal Plan: No Homicidal Intention: No Insight: Poor Judgment: Poor Results Vitals/IOs Vital Signs Date Time Temp Pulse Resp B/P (MAP) Pulse Ox O2 Delivery O2 Flow Rate FiO2 02/03/17 05:56 97.5 59 18 137/85 (102) 99 Assessment & Plan Problem List: (1) Bipolar disorder, current episode mixed, severe, with psychotic features ICD Codes: F31.64 - Bipolar disorder, current episode mixed, severe, with psychotic features (2) Mild neurocognitive disorder ICD Codes: G31.84 - Mild cognitive impairment, so stated Assessment & Plan Continue current treatment plan Justification for Cont. Inpt. Patient will decompensate in a less restrictive setting Request HC Surrog/Guard Advoc?: Yes Ankit Ray DO Feb 03, 2017 13:10
[2017-02-03] MEDS: ACETAMINOPHEN 325 MG TAB PO PRN (17:41)
[2017-02-03 21:06] VITALS: BP 128/69; PULSE 87; RESP 18; TEMP 97.8; O2SAT 96
[2017-02-03] MEDS: LORazepam 1 MG TAB PO PRN (21:28)
[2017-02-03] MEDS: MIRTAZAPINE 15 MG TAB PO SCH (21:29)
[2017-02-04] MEDS: LEVOTHYROXINE SODIUM 75 MCG TAB PO SCH (05:43)
[2017-02-04 06:06] VITALS: BP 123/71; PULSE 68; RESP 18; TEMP 97.2; O2SAT 99
[2017-02-04] MEDS: SUCRALFATE 1 GM TAB PO SCH ×4 (08:00→20:24)
[2017-02-04] MEDS: NICOTINE 21 MG/24 HR PATCH T-DERMAL SCH (09:00)
[2017-02-04] MEDS: levOCARNitine 10% ORAL SOLN 118 ML BTL PO SCH ×3 (09:00→17:39)
[2017-02-04] MEDS: REMOVE OLD PATCH T-DERMAL SCH (09:00)
[2017-02-04] MEDS: GABAPENTIN 300 MG CAP PO SCH ×3 (09:13→17:37)
[2017-02-04] MEDS: DIVALPROEX SODIUM E.R. 500 MG TAB PO SCH ×3 (09:19→20:26)
[2017-02-04] MEDS: IBUPROFEN 800 MG TAB PO PRN ×2 (10:08→18:20)
--- NOTE | 2017-02-04 10:55 | HHI.PYPN ---
Subjective Chief Complaint: Psychosis/Mild neurocognitive disorder Remarks Patient seen and examined. Chart reviewed. Case discussed with nursing staff. No behavioral issues noted. On my examination today, the patient reports that he feels significantly calmer. He feels like the medications and in particular the Prolixin are helping to lessen tension. I can elicit no paranoia today. No SI or HI. He remains resistant to RESIDENTIAL placement but only because he says that his finances will not support it, and he says that he would like to stay with a female friend by the name of Valdemar. Denies side effects from medications besides some mild daytime tiredness. Agreeable to Prolixin Dec. Agreeable to consolidating PO Prolixin to BID with bulk of dose at HS. He does have a mild resting tremor, but he says that he often has this with Depakote and declines addition of a medication to try to counteract this. No other physical complaints. Review of Systems Except as stated in HPI: all other systems reviewed are Neg Mental Status Examination Appearance: Appropriate Consciousness: Alert Orientation: x4 Motor Activity: Other (mild resting hand tremor, no cogwheeling. No other motoric abnormalities noted.) Speech: Unremarkable Language: Adequate Fund of Knowledge: Adequate Attention and Concentration: Adequate Memory: Unremarkable Mood: Other (calm) Affect: Appropriate Thought Process & Associations: Intact, Logical, Goal directed, Linear Thought Content: Appropriate Hallucination Type: None Delusion Type: None Suicidal Ideation: No Suicidal Plan: No Suicidal Intention: No Homicidal Ideation: No Homicidal Plan: No Homicidal Intention: No Insight: Poor (perhaps improving somewhat) Judgment: Poor (perhaps improving somewhat) Results Labs Labs reviewed. No new labs. Vitals/IOs Vital Signs Date Time Temp Pulse Resp B/P (MAP) Pulse Ox O2 Delivery O2 Flow Rate FiO2 02/04/17 06:06 97.2 68 18 123/71 (88) 99 Assessment & Plan Problem List: (1) Bipolar disorder, current episode mixed, severe, with psychotic features ICD Codes: F31.64 - Bipolar disorder, current episode mixed, severe, with psychotic features (2) Mild neurocognitive disorder ICD Codes: G31.84 - Mild cognitive impairment, so stated Assessment & Plan Patient seems considerably improved with respect to psychosis. I will continue his Prolixin and initiate Prolixin decanoate at a dose of 18.75mg IM, which is roughly equivalent to his oral dose. I will continue oral Prolixin and consolidate Prolixin to 5mg qAM and 10mg qHS. We could consider tapering oral Prolixin as levels of decanoate become therapeutic. Continue Depakote as ordered. I will check a Depakote level tomorrow morning as the patient does have a mild tremor but no other signs of Depakote toxicity. There are no other signs of EPS, and patient does have Benadryl available as needed if the cause of the tremor is from EPS. Continue to monitor on an inpatient unit. Continue other medications and care as ordered. Justification for Cont. Inpt. Med changes. Risk for decompensation in less restrictive setting. Discharge Planning Case discussed with counselor. Request HC Surrog/Guard Advoc?: Yes Kayden Segundo MD Feb 04, 2017 10:55
[2017-02-04] MEDS: ACETAMINOPHEN 325 MG TAB PO PRN (15:24)
[2017-02-04] MEDS: PADIMATE (CHAPSTICK) 4.5 GM TUBE TOPICAL PRN ×2 (15:24→20:23)
[2017-02-04 16:00] VITALS: BP 126/74; PULSE 74; RESP 18; TEMP 98.1; O2SAT 99
[2017-02-04] MEDS: MIRTAZAPINE 15 MG TAB PO SCH (20:24)
[2017-02-05 05:36] VITALS: BP 124/68; PULSE 68; RESP 16; TEMP 98.2; O2SAT 98
[2017-02-05] MEDS: LEVOTHYROXINE SODIUM 75 MCG TAB PO SCH (05:38)
[2017-02-05] MEDS: SUCRALFATE 1 GM TAB PO SCH ×4 (05:49→20:50)
[2017-02-05] MEDS: IBUPROFEN 800 MG TAB PO PRN ×2 (06:01→17:58)
[2017-02-05] MEDS: levOCARNitine 10% ORAL SOLN 118 ML BTL PO SCH ×3 (09:00→17:58)
[2017-02-05] MEDS: REMOVE OLD PATCH T-DERMAL SCH (09:00)
[2017-02-05] MEDS: GABAPENTIN 300 MG CAP PO SCH ×3 (09:21→17:58)
[2017-02-05] MEDS: NICOTINE 21 MG/24 HR PATCH T-DERMAL SCH (09:21)
[2017-02-05] MEDS: DIVALPROEX SODIUM E.R. 500 MG TAB PO SCH ×3 (09:22→20:50)
[2017-02-05] MEDS: ACETAMINOPHEN 325 MG TAB PO PRN (09:23)
[2017-02-05] MEDS: PADIMATE (CHAPSTICK) 4.5 GM TUBE TOPICAL PRN ×2 (09:25→18:06)
--- NOTE | 2017-02-05 12:04 | PD.TTN ---
Patient Problems 1. Discharge planning 2. Medication compliance 3. Knowledge deficit 4. Lack of coping skills Progress Toward Goals Provider Present: Dr. Nasir Segundo Provider Input: Pt medication regiment will continue to be evaluated including possible consideration for addition of long acting injection. It is believed that he would benefit from placement in a facility after discharge. 01/29- Pt has been refusing his medication and appears angry, threatening and paranoid. He is a possible referral to [facility] and a referral for INTERMEDIATE placement. 02/05- Pt medication regiment continues to be evaluated and he presents with improvement in his symptoms. Nurse(s) Present: Jayme Pires RN Nurse(s) Input: PT appears paranoid, oppositional, focused on his guns and has been refusing his medication. 02/05- Marjan Bragg RN Pt has no changes, remains focused on self, medication compliant and no behavioral issue. Psychiatric Counselors Present: Ian Qureshi [facility] Psych Therapist Input: Pt remains paranoid, easily agitated, guarded, uncooperative, appropriate and organized. Pt presents with limited insight into condition and need for care. He is resistant to medication changes. Pt is also resistant to suggestions for discharge planning. Pt presents with limited coping and emotional regulation skills. 01/29- Pt appears easily agitated, labile, paranoid, guarded, uncooperative and threatening. He has been observed to make threats of violance against psychiatrist. He has no insight into condition and need for care. Pt appears impulsive and with poor coping/emotional regulation skills. He has not been compliant with medication regiment and remains volatile. 02/05- Pt appears less delusional, paranoid and easily agitated. He has been compliant with medication regiment and more engaging on unit. He presents with improving coping and emotional regulation skills as evidenced by less outbursts. Insight remains limited into condition and need for care. Discharge planning is continuing to be evaluated as he does not have the funds for an INTERMEDIATE. Group Spec/RT/OT/GOYAL Present: HARRISON Durán, JAY JAY Mueller Group Spec/RT/OT/GOYAL Input: Pt has not been participating in group activities. 01/29- HARRISON Durán Pt has not been attending group and appears isolative and antisocial. 02/05- JAY JAY Mueller Pt attends 75% of groups. Discharge Plan [facility] Placement is being evaluated as he no longer meets criteria for [facility] and does not have the funding for an INTERMEDIATE. Documentation Scribe: JAYNE Villatoro Jonathan [facility] Feb 05, 2017 12:03
--- NOTE | 2017-02-05 13:09 | HHI.PYPN ---
Subjective Chief Complaint: Psychosis/Mild neurocognitive disorder Remarks Patient seen and examined with nurse. Chart reviewed. Case discussed in treatment team with counselor and occupational therapist. Nurse reports that the patient is significantly calmer with the benefit of antipsychotic medications. On my examination today, the patient exhibits no paranoia. He denies suicidal or homicidal ideation. Mood is generally upbeat. He denies any side effects from medications. Denies any sedation following adjustment and Prolixin dosing. He did accept his Prolixin Decanoate yesterday without incident. Seems more accepting of treatment and in particular antipsychotic treatment today. Reports that he normally takes tizanidine and tamsulosin on an outpatient basis and would like to resume these medications. Denies side effects from medications. No physical complaints. Continues to wish to go stay with a friend, and counselor to explore this possibility. Review of Systems Except as stated in HPI: all other systems reviewed are Neg Mental Status Examination Appearance: Appropriate Consciousness: Alert Orientation: x4 Motor Activity: Other (no motor abnormalities noted today. In particular no hand tremor noted today.) Speech: Unremarkable Language: Adequate Fund of Knowledge: Adequate Attention and Concentration: Adequate Memory: Unremarkable Mood: Good, Other (remains calm) Affect: Appropriate Thought Process & Associations: Intact, Logical, Goal directed, Linear Thought Content: Appropriate Hallucination Type: None Delusion Type: None Suicidal Ideation: No Suicidal Plan: No Suicidal Intention: No Homicidal Ideation: No Homicidal Plan: No Homicidal Intention: No Insight: Fair Judgment: Adequate (fair) Results Labs Depakote level ordered for this morning is presently pending, although it was drawn post-dose and so is likely inaccurate. Vitals/IOs Vital Signs Date Time Temp Pulse Resp B/P (MAP) Pulse Ox O2 Delivery O2 Flow Rate FiO2 02/05/17 05:36 98.2 68 16 124/68 (86) 98 Intake and Output 02/05/17 02/05/17 02/06/17 08:00 16:00 00:00 Intake Total 720 ml Balance 720 ml Assessment & Plan Problem List: (1) Bipolar disorder, current episode mixed, severe, with psychotic features ICD Codes: F31.64 - Bipolar disorder, current episode mixed, severe, with psychotic features (2) Mild neurocognitive disorder ICD Codes: G31.84 - Mild cognitive impairment, so stated Assessment & Plan Continue oral Prolixin supplementing Prolixin Decanoate. Continue other psychotropics as ordered. Transfer back to lower acuity unit. I will add tizanidine as needed and tamsulosin. Continue other medications and care as ordered. Justification for Cont. Inpt. Risk for decompensation and less restrictive environment. Discharge Planning Possible discharge to friend's care. Counselor to explore this. Request HC Surrog/Guard Advoc?: Yes Kayden Segundo MD Feb 05, 2017 13:09
[2017-02-05 18:44] VITALS: BP 126/70; PULSE 74; RESP 16; TEMP 98.1; O2SAT 96
[2017-02-05] MEDS: MIRTAZAPINE 15 MG TAB PO SCH (20:50)
[2017-02-06] MEDS: LEVOTHYROXINE SODIUM 75 MCG TAB PO SCH (06:00)
[2017-02-06 06:04] VITALS: BP 125/76; PULSE 97; RESP 18; TEMP 97.9; O2SAT 94
[2017-02-06] MEDS: IBUPROFEN 800 MG TAB PO PRN ×3 (06:56→21:46)
[2017-02-06] MEDS: SUCRALFATE 1 GM TAB PO SCH ×4 (08:00→20:52)
[2017-02-06] MEDS: REMOVE OLD PATCH T-DERMAL SCH (09:00)
[2017-02-06] MEDS: levOCARNitine 10% ORAL SOLN 118 ML BTL PO SCH ×3 (09:27→18:00)
[2017-02-06] MEDS: DIVALPROEX SODIUM E.R. 500 MG TAB PO SCH ×3 (09:27→20:52)
[2017-02-06] MEDS: NICOTINE 21 MG/24 HR PATCH T-DERMAL SCH (09:27)
[2017-02-06] MEDS: TAMSULOSIN HCL 0.4 MG CAP PO SCH (09:28)
[2017-02-06] MEDS: GABAPENTIN 300 MG CAP PO SCH ×3 (09:28→18:22)
--- NOTE | 2017-02-06 10:37 | HHI.PYPN ---
Subjective Chief Complaint: Psychosis/Mild neurocognitive disorder Remarks Patient seen and examined with nurse. Chart reviewed. Case discussed with nursing staff. Patient was not transferred to the lower acuity unit overnight only because there was no bed available there. Patient has been no behavioral problem on the unit. Case discussed with counselor. On my examination today, the patient is in good spirits. He says that his concentration is improved with medications and he is able to better focus on his reading. He denies any audiovisual hallucinations. He denies any violent thoughts and in particular denies any thoughts of violence towards his family or sister. We discuss possible barriers to success in the community setting as part of our discharge planning, and the patient identifies the stress of moving items to his friend's house as a barrier. He explains that he is quite particular about how items like his electronics are to be packed. He says that having some Ativan p.r.n. available after discharge might be helpful to overcome this anxiety, and I do not think this is unreasonable. No evidence of ongoing impairment in reality construction. Denies side effects from medications. No physical complaints. Review of Systems Except as stated in HPI: all other systems reviewed are Neg Mental Status Examination Appearance: Appropriate Consciousness: Alert Orientation: x4 Motor Activity: Other (no abnormal motor movements appreciated) Speech: Unremarkable Language: Adequate Fund of Knowledge: Adequate Attention and Concentration: Adequate Memory: Unremarkable Mood: Good, Other (remains calm) Affect: Appropriate (remains appropriate) Thought Process & Associations: Intact, Logical, Goal directed, Linear Thought Content: Appropriate Hallucination Type: None Delusion Type: None Suicidal Ideation: No Suicidal Plan: No Suicidal Intention: No Homicidal Ideation: No Homicidal Plan: No Homicidal Intention: No Insight: Fair Judgment: Adequate (fair) Results Labs Test 02/05/17 14:26 Valproic Acid (Depakene) Level 78 MCG/ML Labs reviewed. Depakote level was obtained post-dose and so is likely spuriously high. Purpose of level was to ensure patient is not Depakote toxic and level is not in toxic range. Vitals/IOs Vital Signs Date Time Temp Pulse Resp B/P (MAP) Pulse Ox O2 Delivery O2 Flow Rate FiO2 02/06/17 06:04 97.9 97 18 125/76 (60) 94 Assessment & Plan Problem List: (1) Bipolar disorder, current episode mixed, severe, with psychotic features ICD Codes: F31.64 - Bipolar disorder, current episode mixed, severe, with psychotic features (2) Mild neurocognitive disorder ICD Codes: G31.84 - Mild cognitive impairment, so stated Assessment & Plan Continue current psychotropics as ordered. Continue to monitor on the inpatient unit. Continue other medication and care as ordered. Justification for Cont. Inpt. Final discharge planning. Discharge Planning Possible d/c to friend's house. Case d/w counselor. Request HC Surrog/Guard Advoc?: Yes Kayden Segundo MD Feb 06, 2017 10:37
[2017-02-06] MEDS: PADIMATE (CHAPSTICK) 4.5 GM TUBE TOPICAL PRN (14:11)
[2017-02-06 16:06] VITALS: BP 129/68; PULSE 75; RESP 18; TEMP 98.1; O2SAT 99
[2017-02-06] MEDS: MIRTAZAPINE 15 MG TAB PO SCH (20:53)
[2017-02-07] MEDS: LEVOTHYROXINE SODIUM 75 MCG TAB PO SCH (05:47)
[2017-02-07] MEDS: IBUPROFEN 800 MG TAB PO PRN (05:48)
[2017-02-07 05:49] VITALS: BP 117/76; PULSE 68; RESP 18; TEMP 97.6; O2SAT 98
[2017-02-07] MEDS: SUCRALFATE 1 GM TAB PO SCH (08:00)
[2017-02-07] MEDS: REMOVE OLD PATCH T-DERMAL SCH (09:00)
[2017-02-07] MEDS: GABAPENTIN 300 MG CAP PO SCH (09:27)
[2017-02-07] MEDS: TAMSULOSIN HCL 0.4 MG CAP PO SCH (09:27)
[2017-02-07] MEDS: levOCARNitine 10% ORAL SOLN 118 ML BTL PO SCH (09:28)
[2017-02-07] MEDS: DIVALPROEX SODIUM E.R. 500 MG TAB PO SCH (09:28)
[2017-02-07] MEDS: NICOTINE 21 MG/24 HR PATCH T-DERMAL SCH (09:30)
[2017-02-07] MEDS: LORazepam 1 MG TAB PO PRN (09:31)
[2017-02-07] MEDS ORDERED: LEVO10%S PO (11:43)
[2017-02-07] MEDS ORDERED: TIZA4 PO (11:43)
[2017-02-07] MEDS ORDERED: FLUP5TAB PO (11:43)
[2017-02-07] MEDS ORDERED: AMLO10 PO (11:43)
[2017-02-07] MEDS ORDERED: MIRTA15 PO (11:43)
[2017-02-07] MEDS ORDERED: TAMS5CAP PO (11:43)
[2017-02-07] MEDS ORDERED: DEPA500T3 PO (11:43)
[2017-02-07] MEDS ORDERED: CARA1TAB6 PO (11:43)
[2017-02-07] MEDS ORDERED: NEUR300C PO (11:43)
[2017-02-07] MEDS ORDERED: FLUP1INJ IM (11:43)
[2017-02-07] MEDS ORDERED: FLUP10TA PO (11:43)
--- NOTE | 2017-02-07 11:43 | HHI.DS ---
Psychiatry Discharge Summary Inpatient Psychiatric care?: Yes Advance Directive: No Mental Health AdvanceDirective: No Health Care Proxy: No Admission Admission Date Jan 18, 2017 at 12:33 Admission Diagnosis: (1) Bipolar disorder, current episode mixed, severe, with psychotic features ICD Code: F31.64 - Bipolar disorder, current episode mixed, severe, with psychotic features Brief History 51-year-old male with long history of bipolar disorder, presents under a Lew act initiated at an outside hospital last evening. Apparently the patient went to [facility] and was Lew acted by one of our former emergency room physician's, Dr. Alexander. According to the Lew act, the patient is both psychotic and homicidal. The patient indicated he was "going to shoot his sister" with a shotgun that he has under his bed. According to further reports , the patient owns multiple weapons. He had gone to steak and shake due to abdominal pain earlier that evening but when he went to the hospital, he indicated that he enjoys shooting. He stated that shooting helped his mental illness. He would not describe whether he had plans on shooting his sister or other family members. He did describe suicidality on multiple previous occasions but was not threatening suicide last night. Upon interview, the patient is still easily irritated and easily agitated. He obviously has strong negative feelings towards his sister. He feels that she is interfering in his life although he does not live with her and wants nothing to do with her. He appears to have paranoid delusions regarding his sister. He is unable to explain the specifics of why he feels so antagonized and persecuted by her. He continues to have homicidal ideation about shooting her. Apparently he does live with his father but states he has been noncompliant with medications. He is unable to verbally contract for safety. Tobacco Use In Past 30 Days: No Tobacco Past 30 Days Alcohol Use: Never Hospital Course Patient was admitted to a locked, inpatient psychiatric unit. A general medical consultation was obtained. Appropriate precautions were in place throughout patient's hospital stay. Patient was seen and examined on the unit by psychiatry and also visited by counselor. Psychotropic medications were adjusted. Patient tolerated medication changes well without side effects. Patient did accept antipsychotic medication including long-acting injectable antipsychotic and saw considerable improvement in paranoia with addition of this agent to his normal Depakote/Remeron regimen. Patient's behavior improved with the benefit of psychopharmacologic treatment. Neuropsychological evaluation suggested some degree of neurocognitive disorder. Counselor worked with patient's father to ensure that patient's gun collection was removed from the home. Patient's case was presented to the Lew Act court today and the farm worker has granted patient's request for release. I do not recommend patient's release today not least of which because there is a storage room of the patient' s that has not yet been explored for firearms, although patient insists that there are no firearms in the storage room. Since the farm worker has ordered the patient's release, I must discharge him and will do so AGAINST MEDICAL ADVICE. Patient is to have psychiatric follow-up as arranged by counselor. Patient is also to follow-up with primary care. Patient to return to psychiatric emergency room for any concerning psychiatric symptoms. Results Blood Pressure 117 / 76 Vital Signs Date Time Temp Pulse Resp B/P (MAP) Pulse Ox O2 Delivery O2 Flow Rate FiO2 02/07/17 05:49 97.6 68 18 117/76 (90) 98 Laboratory Tests Test 02/05/17 14:26 Laboratory Results Test 01/20/17 12:37 02/05/17 14:26 Cholesterol Level 190 MG/DL (120-200) HDL Cholesterol 47.2 MG/DL (40.0-60.0) Hemoglobin A1c 5.7 % (4.3-6.0) LDL Cholesterol 100 MG/DL (0-99) Triglycerides Level 216 MG/DL (42-150) Valproic Acid (Depakene) Level 78 MCG/ML (50-100) Summary of Procedures None done Imaging Last Impressions Head CT 01/18/17 0000 Signed Impressions: Service Date/Time: Wednesday, January 18, 2017 21:31 - CONCLUSION: Normal examination for a patient of this age. Gil Teran MD Pending results at discharge: No Medications # of Antipsychotic meds at D/C: 1 Approp Antipsych med options 1 - Minimum of three failed multiple trials of monotherapy. 2 - Documented plan to taper to monotherapy due to previous use of multiple meds OR cross-taper in progress at D/C. 3 - Documentation of augmentation of Clozapine. 4 - Justification other than those listed in allowable values 1-3, document here : Discharge Discharge Date: Feb 07, 2017 Discharge Diagnosis: (1) Bipolar 1 disorder, mixed, partial remission Diagnosis: Principal ICD Code: F31.77 - Bipolar disorder, in partial remission, most recent episode mixed (2) Mild neurocognitive disorder Diagnosis: Secondary ICD Code: G31.84 - Mild cognitive impairment, so stated Pt Condition on Discharge: Guarded (AMA discharge) Discharge Disposition: Discharge Home Discharge Instructions Diet Instructions: As Tolerated, No Restrictions Activities you can perform: Weight Bearing as Mk Scheduled Appointment: as per counselor's notes New Orders: AMMONIA - 1 Week DEPAKENE - 1 Week New Medications: Fluphenazine Decanoate Inj (Fluphenazine Decanoate Inj) 125 Mg/5 Ml Inj 18.75 MG IM Q21D for Mental Health, #1 VIAL 0 Refills This dose of Prolixin Decanoate is due on 02/25/2017. Amlodipine (Norvasc) 10 Mg Tab 10 MG PO DAILY for Blood Pressure Management for 15 Days, #15 TAB 1 Refill Divalproex ER (Depakote ER) 500 Mg Adri 500 MG PO DAILY@0900,1300,2100 for Mental Health for 15 Days, TAB 1 Refill Fluphenazine (Fluphenazine) 5 Mg Tab 5 MG PO DAILY for Mental Health for 15 Days, #15 TAB 1 Refill Discuss with outpatient provider how to taper oral Prolixin now that you are on Prolixin Decanoate. Fluphenazine (Fluphenazine) 10 Mg Tab 10 MG PO HS for Mental Health for 15 Days, TAB 1 Refill Discuss with your outpatient provider how to taper oral Prolixin now that you are on Prolixin Decanoate. Gabapentin (Neurontin) 300 Mg Cap 600 MG PO TID for Health for 1 Day, CAP 0 Refills Home med. Order is to update med rec only. Levocarnitine Liq (Carnitor Liq) 1 Gm/10 Ml Soln 2 ML PO TID for Hyperammonemia for 15 Days, ML 1 Refill Mirtazapine (Mirtazapine) 15 Mg Tab 7.5 MG PO HS for Mental Health for 15 Days, TAB 1 Refill Sucralfate (Carafate) 1 Gram Tab 1 GM PO ACHS for Health for 1 Day, TAB 0 Refills Home med. Order is to update med rec only. Tamsulosin (Flomax) 0.4 Mg Cap 0.4 MG PO DAILY for Urinary symptoms for 1 Day, #1 CAP 0 Refills Home med. Order is to update med rec only. Tizanidine (Zanaflex) 4 Mg Tab 4 MG PO Q8H PRN for Muscle spasm for 1 Day, #3 TAB 0 Refills Home med. Order is to update med rec only. Continued Medications: Levothyroxine (Synthroid) 75 Mcg Tab 75 MCG PO DAILY for Thyroid, #30 TAB 0 Refills Discharge Time <= 30 minutes Mental Status Examination Appearance: Appropriate Consciousness: Alert Orientation: x4 Motor Activity: Normal gait, Other (no motoric abnormalities noted) Speech: Unremarkable Language: Adequate Fund of Knowledge: Adequate Attention and Concentration: Adequate Memory: Unremarkable Mood: Appropriate Affect: Appropriate Thought Process & Associations: Intact, Logical, Goal directed, Linear Thought Content: Appropriate Hallucination Type: None Delusion Type: None Suicidal Ideation: No Suicidal Plan: No Suicidal Intention: No Homicidal Ideation: No Homicidal Plan: No Homicidal Intention: No Insight: Fair Judgment: Adequate (fair) Discharge/Advance Care Plan Health Problems: (1) Bipolar disorder, current episode mixed, severe, with psychotic features (2) Mild neurocognitive disorder Goals to promote your health * To prevent worsening of your condition and complications * To maintain your health at the optimal level Directions to meet your goals Take your medications as prescribed Follow your dietary instruction Follow activity as directed Keep your appointments as scheduled Take your immunizations and boosters as scheduled If your symptoms worsen call your PCP, if no PCP go to Urgent Care Center or Emergency Room For 10/09 questions related to your inpatient stay or results of tests pending at discharge, please contact Dr. Kayden Segundo at Smoking is Dangerous to Your Health. Avoid second hand smoking Kayden Segundo MD Feb 07, 2017 11:43
== END 2017-02-07 13:15 | disposition left against medical advice (07) | DRG 885 ==
LOC: NEPJ 22:41 → NEDA 01-18 12:33 → H270 01-18 14:45 → H260 01-25 12:00 → H270 01-28 14:00
PROVIDERS: ADMIT Psychiatry & Neurology Psychiatry; ATTEND Psychiatry & Neurology Psychiatry
DX: F31.64 Bipolar disorder, current episode mixed, severe, with psychotic features (principal); E72.20 Disorder of urea cycle metabolism, unspecified; R45.850 Homicidal ideations; Z91.14 Patient's other noncompliance with medication regimen; I10 Essential (primary) hypertension; E03.9 Hypothyroidism, unspecified; E78.00 Pure hypercholesterolemia, unspecified; N40.0 Benign prostatic hyperplasia without lower urinary tract symptoms; F17.210 Nicotine dependence, cigarettes, uncomplicated; G31.84 Mild cognitive impairment of uncertain or unknown etiology; G89.29 Other chronic pain; M54.2 Cervicalgia; R25.1 Tremor, unspecified
CPT/HCPCS: 70450; 80048; 80053; 80061; 80164; 82140; 82306; 82607; 82948; 83036; 84443; 85025; 86592; 93005; 99285; J2680; Q0163